=== PATIENT | female | born 1945 | race Caucasian/White ===

== ENCOUNTER 2019-10-04 21:56 | Observation (INO) | payer MEDICARE, OTHER, SELFPAY ==
[2019-10-04 23:02] VITALS: BMI 21.5
[2019-10-05 00:01] VITALS: PULSE 61; RESP 20; TEMP 36.3; O2SAT 98
--- NOTE | 2019-10-05 00:02 | USCV_ITS ---
Rakesh Hortensia Exam Date: 10/05/2019 07:07 Ordering Phys: Mikhail Soto MD Ag 74 Gender: F [place]am Location[place] [facility] [place]ologist: Mahi Eli e: Indication: TIA Risk Factors: Previous Vascular Surgery: Right Brachial BP: / Left Brachial BP: / Velocity (cm/s) Spectral Plaque Velocity (cm/s) Spectral Plaque Syst/Diast Broadening Syst/Diast Broadening 169.8 /19.60 Prox CCA 82.00 /16.40 0 108.5 /13.90 Mid CCA 95.90 /13.90 0 99.70 /18.90 Distal CCA 99.70 /24.00 64.30 /17.70 Prox ICA 112.9 /25.90 0 103.6 /26.70 Mid ICA 127.0 /28.40 0 0 88.50 /23.40 Distal ICA 120.3 /25.10 0 99.70 ECA 218.4 0 0.95 ICA/CCA 1.32 Antegrade Vertebral Antegrade 108.3/ 14.30 cm/s 69.50 / 10.00cm/s 0 Tri Subclavian Tri 131.2 113.6 0 0 FINDINGS Comparison 01/07/15 CONCLUSIONS Right ICA stenosis <50%. Moderate atheromatous plaque right carotid bulb/ICA. Left ICA stenosis 50-69% at the lower end of the range near 50%..Moderate atheromatous plaque left ca rotid bulb/ICA. Velocities decreased on the left compared to 2014 Normal antegrade Doppler flow noted in the right vertebral artery. Normal antegrade Doppler flow noted in the left vertebral artery. Alexx Monsivais MD (Electronically Signed) Final Date:05 October 2019 10:09 S
--- NOTE | 2019-10-05 02:32 | ECG_ITS ---
Measurements Intervals [place] Rate: 68 P: 71 ID: [id number] QRS: 70 QRSD: 93 T: 44 QT: 405 QTc: 434 SINUS RHYTHM Compared to ECG 11/12/2017 10:32:30 T-wave abnormality no longer present [email or web address]
[2019-10-05 02:58] VITALS: BP 133/60; RESP 18; TEMP 36.3
[2019-10-05 03:37] LABS: Troponin T (5th) Once 14 ng/mL (0-10)
[2019-10-05 08:00] VITALS: BP 150/74; PULSE 64; RESP 22; TEMP 36.9; O2SAT 93
[2019-10-05] MEDS: atorvastatin 40 mg Tablet 80 MG PO (08:17)
[2019-10-05] MEDS: clopidogrel 75 mg Tablet PO (08:18)
[2019-10-05] MEDS: gabapentin 300 mg Capsule PO (08:18)
[2019-10-05] MEDS: aspirin 81 mg EC Tablet PO (08:18)
[2019-10-05 10:11] LABS: Anion Gap 16.5 (5-19); Blood Urea Nitrogen 14 mg/dL (8-23); Calcium 10.3 mg/Dl (8.8-10.2); Carbon Dioxide 25 mmol/L (22-29); Chloride 102 mmol/L (98-107); Glucose 111 mg/dL (74-106); Potassium 4.5 mmol/L (3.5-5.1); Sodium 139 mmol/L (136-145)
[2019-10-05 11:42] VITALS: BP 173/65; PULSE 76; RESP 22; TEMP 36.8; O2SAT 97
--- NOTE | 2019-10-05 14:46 | P.DS_ITS ---
Discharge Providers Date of Admission: 10/04/19 21:56 Date of Discharge: 10/05/19 Attending Provider at Admission: Enma Soto MD Attending Provider at Discharge: Bari Nieves MD Primary Care Provider: Elian Tavera DO Diagnoses at Discharge Discharge Diagnosis (1) TIA (transient ischemic attack): Status: Acute Problem details: Symptoms are completely resolved Reason for Visit Reason for Visit: Reason For Visit: Tia Hospital Course Hospital Course: Hortensia is a 74-year-old white female who presents to the hospital with slurred speech, confusion. There was concern for TIA. By the time she arrived to the emergency department, symptoms had abated. CT head was negative. EKG demonstrated sinus rhythm. Work-up in the hospital demonstrated normal telemetry. Carotid duplex did not demonstrate surgical disease. Echocardiogram was not completed as she had recent previous work-up. On discharge she was afebrile, cardiovascular regular rate and rhythm, lungs clear. It was thought she could be discharged home on higher dose of statin, increased dose of aspirin. She will follow-up with neurology and her primary care provider. Physical Exam Narrative: EXAM NARRATIVE: General exam no apparent distress Cardiovascular regular rate and rhythm Lungs clear Abdomen is soft, positive bowel sounds Extremities no cyanosis clubbing or edema Neurologic: No focal deficits Discharge Data Data Completed and Pending: Completed Studies During Hospitalization Category Date Time Status CV carotid duplex BI* [id number] Routine Ultrasound 10/05/19 00:02 Completed Pending at discharge Category Date Time Status Urinalysis Routin e Lab 10/05/19 09:06 Ordered Labs from last 24 hours 10/05/19 10/05/19 10/04/19 09:45 02:42 20:30 WBC RBC Hgb Hct MCV MCH MCHC RDW Plt Count MPV Neut % (Auto) Lymph % (Auto) [place] % (Auto) Eos % (Auto) Baso % (Auto) Neut # (Auto) Lymph # (Auto) [place] # (Auto) Eos # (Auto) Baso # (Auto) Nucleated RBC % (a uto) Nucleated RBCs # PT INR Sodium 139 Potassium 4.5 Chloride 102 Carbon Dioxide 25 Anion Gap 16.5 BUN 14 Creatinine 0.9 Glucose 111 H Random Glucose Calcium 10.3 H Total Bilirubin AST ALT Alkaline Phosphata se Troponin T Gen 5 n g/L 14 H Troponin T Baselin e 18.17 H Total Protein Albumin Globulin 10/04/19 10/04/19 10/04/19 20:30 20:30 20:30 WBC 8.8 RBC 4.71 Hgb 14.1 Hct 42.7 MCV 90.7 MCH 29.9 MCHC 33.0 RDW 12.8 Plt Count 227 MPV 10.5 H Neut % (Auto) 76.5 Lymph % (Auto) 12.8 [place] % (Auto) 8.2 Eos % (Auto) 1.5 Baso % (Auto) 0.7 Neut # (Auto) 6.7 Lymph # (Auto) 1.1 [place] # (Auto) 0.7 Eos # (Auto) 0.1 Baso # (Auto) 0.1 Nucleated RBC % (a uto) 0 Nucleated RBCs # 0.0 PT 13.7 INR 1.02 Sodium 130 L Potassium 4.2 Chloride 93 L Carbon Dioxide 25 Anion Gap 16.2 BUN 17 Creatinine 1.1 H Glucose Random Glucose 129 H Calcium 10.4 H Total Bilirubin 0.6 AST 25 ALT 14 Alkaline Phosphata se 109 H Troponin T Gen 5 n g/L Troponin T Baselin e Total Protein 8.0 Albumin 5.0 Globulin 3.0 Vitals: Last Vital Signs Temp 98.2 F 10/05/19 11:42 Pulse 76 10/05/19 11:42 Resp 22 H 10/05/19 11:42 BP 173/65 10/05/19 11:42 Pulse Ox 97 10/05/19 11:42 Discharge Plan Discharge Patient Disposition: Home, Self-Care Condition: Stable Prescriptions: New atorvastatin 40 mg Tablet 80 mg PO DAILY Qty: 60 RF: 0 aspirin 162.5 mg capsule,extended release 24hr 162.5 mg PO DAILY Qty: 30 RF: 0 Continued amlodipine 2.5 mg Tablet 2.5 mg PO DAILY RF: 0 gabapentin 600 mg Tablet 600 mg PO QPM RF: 0 labetalol 200 mg Tablet 200 mg PO BID RF: 0 clopidogrel 75 mg Tablet 75 mg PO DAILY RF: 0 alprazolam 0.25 mg Tablet 0.25 mg PO QID PRN (Reason: Anxiety) RF: 0 gabapentin 300 mg Capsule 300 mg PO DAILY RF: 0 Discontinued atorvastatin 20 mg Tablet 20 mg PO QPM RF: 0 Aspir-81 81 mg Tablet,Delayed Release (Dr/Ec) 81 mg PO DAILY RF: 0 Discharge Orders: Discharge Order (Routine); Ordered 10/05/19 Ordered By: Bari Nieves Referrals: Tessie Guerrero MD [Physician] - 2 weeks Elian Tavera DO [Primary Care Provider] - 4-7 days Discharge Diet: Low Cholesterol Discharge Activity: Increase activity as tolerated Activity Restrictions/Additional Instructions: Take all medicine as prescribed. No anti-inflammatories. Discharge Attestations Time Spent in Discharge Care*: greater than 30 min Quality Metrics Clinical Quality Measures During this hospital stay, did patient experience: Stroke Contraindication to Antithrombotic: Antithrombotic prescribed Contraindication to Anticoagulation: Overlap treatment not indicated Contraindication to Statin: Statin prescribed Coding Level of Care Code Acute Rf Engineer for g Fwd Diagnoses TIA (transient ischemic attack) G45.9
[2019-10-05 15:20] VITALS: BP 150/74; PULSE 64; RESP 22; TEMP 36.8; O2SAT 97
== END 2019-10-05 15:34 | disposition home or self-care (01) ==
PROVIDERS: Admitting Provider Internal Medicine; Emergency Provider Emergency Medicine; Family Provider Internal Medicine; PCP Internal Medicine; Visit Provider Internal Medicine
DX: G45.9 Transient cerebral ischemic attack, unspecified (principal); R29.700 NIHSS score 0; I73.9 Peripheral vascular disease, unspecified; Z86.73 Personal history of transient ischemic attack (TIA), and cerebral infarction without residual deficits; Z79.02 Long term (current) use of antithrombotics/antiplatelets; Z87.891 Personal history of nicotine dependence; I10 Essential (primary) hypertension; G47.30 Sleep apnea, unspecified
CPT/HCPCS: 36415; 36416; 70450; 71045; 80048; 80053; 84484; 85025; 85610; 93005; 99285; G0378

== ENCOUNTER → 2019-10-25 12:28 | Outpatient (BNVA) | payer MEDICARE, OTHER, SELFPAY | PROVIDERS: Family Provider Internal Medicine; PCP Internal Medicine; Referring Provider Internal Medicine; Visit Provider Specialist | DX: I99.8 Other disorder of circulatory system (principal); Z87.891 Personal history of nicotine dependence; Z86.73 Personal history of transient ischemic attack (TIA), and cerebral infarction without residual deficits | CPT/HCPCS: 99204; 99214 ==

== ENCOUNTER 2019-11-03 08:23 | Outpatient (CLI) | payer MEDICARE, OTHER, SELFPAY ==
--- NOTE | 2019-11-03 08:45 | MR_ITS ---
WS: [id number] MRI HEAD WITHOUT CONTRAST TECHNIQUE: Sagittal T1, T2 axial, T2 axial FLAIR, axial and coronal T1 images, axial susceptibility w eighted imaging, axial diffusion weighted images, and coronal T2 images were obtained. CLINICAL INFORMATION: Stroke COMPARISON: CT October 04, 2019 FINDINGS: No evidence of restricted diffusion to suggest acute ischemia. Ventricular system and basal cisterns are patent. Moderate small vessel changes with moderate parenchymal volume loss. Chronic lacunar infa rct right thalamus. Normal posterior fossa. Normal vascular flow voids at the skull base. No extra-ax ial fluid collections. Mild mucosal thickening in the paranasal sinuses. Mastoid air cells demonstrat e mild mucosal thickening right greater than left. Incidental partially empty sella. No hemosiderin on the susceptibly weighted images. Normal optic chiasm and pituitary infundibulum. Mi ld symmetric atrophy involving the temporal lobes and hippocampal formations. MR/MR head wo con* [id number] IMPRESSION: 1. No evidence of restricted diffusion to suggest acute ischemia. 2. Moderate small vessel changes with moderate parenchymal volume loss. 3. Chronic lacunar infarct right thalamus. 4. No hemosiderin on susceptibly weighted images. 5. Mild symmetric atrophy involving the temporal lobes and hippocampal formati ons. 6. Mild mucosal thickening in the paranasal sinuses and right mastoid air cell s.
--- NOTE | 2019-11-03 09:30 | MR_ITS ---
WS: [id number] MRA HEAD TECHNIQUE: Axial 3-D TOF images obtained with axial images and axial, sagittal, and coronal 2-D refor matted images. CLINICAL INFORMATION: Stroke COMPARISON: None. FINDINGS: Dominant distal right vertebral artery. Hypoplastic distal left vertebral artery. Basilar artery is p atent. 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 Both ICAs are patent at the skull base. Normal vascularity to the [place] and MCA territories bilaterally . No evidence of high-grade proximal stenosis or aneurysm. MR/MR angio head wo con [id number] IMPRESSION: 1. No evidence of high-grade proximal stenosis or aneurysm. 2. Dominant distal right vertebral artery. Hypoplastic distal left vertebral a rtery. 3. 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
== END 2019-11-03 08:24 | disposition home or self-care (01) ==
LOC: RADSHAW 08:23
PROVIDERS: Family Provider Internal Medicine; PCP Internal Medicine; Visit Provider Specialist
DX: I63.81 Other cerebral infarction due to occlusion or stenosis of small artery (principal)
CPT/HCPCS: 70544; 70551

== ENCOUNTER 2019-12-04 14:58 | Observation (INO) | payer MEDICARE, OTHER, SELFPAY ==
[2019-12-04] VITALS (16 sets, daily range): BP systolic 110–162; BP diastolic 48–86; PULSE 49–68; RESP 14–23; O2SAT 93–99; BMI 19.9
--- NOTE | 2019-12-04 15:00 | PC.NURSE ---
PHYSICAL ASSESSMENT Chief Complaint: Altered mental status. History: Per . states ? My is having a stroke, she is sweating, is confused, and can?t lift her arms. ? Last known normal: 1230, Found with deficits: 13:30 GENERAL / NEURO / PSYCH: Alert. Oriented X 4. BORIS COMA SCORE: 15- eyes open spontaneously (4); best verbal response- oriented x 4 (5); best motor response- obeys commands (6). HEENT: No facial asymmetry noted. Mucous membranes are pink. RESPIRATORY Chest nontender. Breath sounds within normal limits. CVS: Capillary refill less than 2 seconds. Pulses within normal limits. GI / : Abdomen soft and nontender and normal bowel sounds. NIHSS: Zero SKIN: Skin intact. Skin is warm and dry. Normal skin turgor. Symptoms resolved following pre-hospital treatment ( hypoglycemia ) PROGRESS NOTE Stroke alert called by EMS. Patient directly to CT on arrival.
--- NOTE | 2019-12-04 15:00 | ED_ITS ---
Entered by Kayleen Aranda, acting as scribe for Janine Dailey MD, [facility] HPI - Neuro Symptoms/Deficit General: Chief Complaint: Neuro Symptoms/Deficit Stated Complaint: stroke alert Time Seen by Provider: 12/04/19 14:58 Source: patient, family, EMS and RN notes reviewed Mode of arrival: EMS Limitations: no limitations History of Present Illness: HPI Narrative: 74 yo female presents to ED with complaints of bilateral arm twitching and bilateral arm drift. The patient's last known normal was at 1330 today and spouse reports the patient was back to her normal at 1455. The patient had been napping and she had the symptoms when she woke. She is now able to give date and her name, has no drift, no added draw to her mouth (at 1512). When EMS arrived, the patient's blood sugar was 38 and she was diaphoretic; her blood sugar was 129 after 250 ml D10 administered by EMS. Onset (ago): hour(s) (1.5 (1330)) Time: 13:30 Last Observed Normal: 13:30 Timing confirmed by: family member Location: left arm (twitching, reported drifting), right arm (twitching, reported drifting) and altered (reported unable to give name) History of same: Yes (similar) Severity: moderate Quality: weak and improving Relieving factors: none Exacerbating factors: none Context: sudden onset On Anticoagulants: Yes Associated symptoms: Reports chest pain, diaphoresis and weakness; Deny headache(s), nausea or vomiting Treatments Prior to Arrival: other (D10) Review of Systems General: Reports: 10 or more systems reviewed and unremarkable except in HPI and below Const: Reports: diaphoresis Eyes: Denies: change in vision or blurry vision ENMT: Denies: throat pain, enlarged tonsils, painful swallowing, hoarseness, mouth pain or swelling of lips/tongue Card: Reports: chest pain; Denies: palpitations, irregular heart rhythm, edema or swelling of feet/ankles Resp: Denies: shortness of breath, productive cough or non-productive cough GI: Denies: abdominal pain, nausea or vomiting : Denies: flank pain, difficulty urinating, painful urination, urinary frequency, urinary urgency or urinary hesitancy Musc: Denies: neck pain, back pain or extremity swelling Skin/Breast: Denies: rash, itching or redness Neuro: Denies: headache, numbness in extremities or weakness in extremities Endo: Denies: excessive urination, excessive thirst or tired all the time PFSH ED PFSH: Medical History (Updated 12/05/19 @ 00:03 by Janine Dailey MD, [facility]) Anxiety CAD (coronary artery disease) Cardiac arrest Celiac axis syndrome Chronic pancreatitis CVA (cerebral vascular accident) GI bleed Hiatal hernia History of blood transfusion History of vaginal delivery Hypertension Hyponatremia Mesenteric artery stenosis Mesenteric ischemia Migraine Peripheral vascular disease Pneumonia Postmenopausal Single kidney Sleep apnea TIA (transient ischemic attack) Symptoms are completely resolved TIA (transient ischemic attack) Upper GI bleed Surgical History (Updated 12/04/19 @ 23:48 by Enma Soto MD) H/O aorto-femoral bypass H/O left nephrectomy History of tubal ligation Social History Smoking and tobacco status: former smoker Quit status (tobacco): has quit using tobacco Alcohol intake: current Alcohol intake frequency: 0-2 Drinks per Day Alcohol type: beer NIH stroke score NIHSS: Level Of Consciousness - 1a: 0 Level Of Consciousness Questions - 1b: Both Correct Level Of Consciousness Commands - 1c: Both Correct Best Gaze - 2: Normal Visual Davidson - 3: No Visual Loss Facial Palsy - 4: Normal Motor Arm Right - 5: No Drift Motor Arm Left - 5: No Drift Motor Leg Right - 6: No Drift Motor Leg Left - 6: No Drift Limb Ataxia - 7: Absent Sensory - 8: Mild To Moderate Loss Best Language - 9: No Aphasia Dysarthia - 10: Mild/Moderate Dysarthia Extinction And Inattention - 11: 0 Score: Total Score: 2 Physical Exam Const: COMMON NORMALS: no apparent distress, average body habitus, oriented x3, no limitations, healthy appearing, alert and well nourished HENMT: COMMON NORMALS: normocephalic and head/scalp atraumatic; oral mucous membranes not moist HEAD & SCALP: normocephalic and atraumatic Eye: COMMON NORMALS: PERRL, EOMs intact bilaterally, conjunctivae normal and no scleral icterus CONJUNCTIVA: Yes conjunctivae normal PUPIL: Yes PERRL Neck/C-Spine: COMMON NORMALS: full ROM, supple, no meningeal signs, no JVD and no carotid bruits Chest: COMMONS NORMALS: inspection of chest normal and palpation of chest normal Resp: COMMON NORMALS: normal respiratory effort, no retractions, no use of accessory muscles, clear to auscultation bilaterally and percussion normal AUSCULTATION: clear to auscultation bilaterally PERCUSSION: percussion normal Cardio: COMMON NORMALS: no JVD, regular rate, regular rhythm, S1 normal heart sound, S2 normal heart sound, no gallops, no clicks, no murmurs, no rub and peripheral pulses 2+ throughout RATE: regular rate RHYTHM: regular rhythm HEART SOUNDS: S1 normal and S2 normal PERIPHERAL PULSES: pulses 2+ throughout GI: COMMON NORMALS: normal to inspection, nondistended, normoactive bowel sounds, soft to palpation, non-tender, no hepatosplenomegaly, no masses and no bruits PALPATION: Yes soft and Yes no hepatosplenomegaly : COMMON NORMALS: Yes no CVA tenderness BLADDER/KIDNEY EXAM: Yes no CVA tenderness Back/Pelvis: COMMON NORMALS: no CVA tenderness Extremity: COMMON NORMALS: normal to inspection, full ROM, normal capillary refill, no calf tenderness and no pedal edema Neuro: COMMON NORMALS: oriented x3 SENSORIUM/ORIENTATION: Yes alert MENINGEAL SIGNS: Yes no meningeal signs Skin: COMMON NORMALS: no rashes or lesions noted, no wounds, skin turgor normal, no jaundice, no petechiae and no mottling GENERAL SKIN EXAM: no rashes or lesions noted and turgor normal Course Consultations: Consultation #1: Dr. Soto, hospitalist. He would like for her to obtain an MRCP to rule out choledocholithiasis before admit. Vital Signs: Vital signs: Vital Signs Pulse Rate 68 12/04/19 23:19 Respiratory Rate 16 12/04/19 23:19 Blood Pressure 150/62 12/04/19 23:42 Pulse Oximetry 98 12/04/19 23:42 MDM - Neuro Symptoms/Deficit MDM Narrative: Medical decision making narrative: Patient who presented to the ED with concerns of a CVA. She was however severely hypoglycemic. No history of DM. She however is a poor eater and her last meal was lunch yesterday and or she had a salad. She does not eat any animal protein, no soda, no juices. Also drinks his water. NIH score was 2. She had diarrheal illness earlier today also. CT scan of abdomen showed possible choledocholithiasis on MRCP was ordered which was negative. She is therefore admitted to the hospitalist service for further evaluation and management. Medical Records: Attestation: I reviewed the patient's medical records. Lab Data: Attestation: I reviewed the patient's lab results. Labs: Lab Results 12/04/19 12/04/19 12/04/19 Range/Units 15:05 15:05 15:05 WBC 9.0 (4.0-10.0) 10^3/ uL RBC 4.06 L (4.1-5.3) 10^6/u L Hgb 12.1 (11.5-15.3) g/dL Hct 36.3 L (37.0-47.0) % MCV 89.4 (81-99) fL MCH 29.8 (28.0-34.0) pg MCHC 33.3 (30.0-36.0) g/dL RDW 12.5 (12.1-15.1) % Plt Count 217 (130-400) 10^3/c mm MPV 12.3 H (7.4-10.4) fL Neut % (Auto) 64.7 % Lymph % (Auto) 19.5 % Kings % (Auto) 13.7 % Eos % (Auto) 1.2 % Baso % (Auto) 0.6 % Neut # (Auto) 5.8 (1.8-7.7) 10^3/u L Lymph # (Auto) 1.8 (0.8-4.8) 10^3/u L Kings # (Auto) 1.2 H (0.2-0.9) 10^3/u L Eos # (Auto) 0.1 (0.0-0.8) 10^3/u L Baso # (Auto) 0.1 (0.0-0.1) 10^3/u L Nucleated RBC % (a uto) 0 % Nucleated RBCs # 0.0 /100WBC PT 13.70 H (10.5-13.3) SECO NDS INR 1.02 (0.8-1.2) APTT 29.4 (23.9-36.7) SECO NDS Sodium 130 L (136-145) mmol/L Potassium 3.6 (3.5-5.1) mmol/L Chloride 96 L (98-107) mmol/L Carbon Dioxide 25 (22-29) mmol/L Anion Gap 12.6 (5-19) BUN 17 (8-23) mg/dL Creatinine 1.0 H (0.5-0.9) mg/dL Glucose 36 L* (65-115) mg/dL POC Glucose (70-110) mg/dL Calcium 9.6 (8.5-10.5) mg/dL Total Bilirubin 0.7 (0.15-1.2) mg/dL AST 22 (0-32) U/L ALT 12 (0-33) U/L Alkaline Phosphata se 95 (35-105) IU/L Total Protein 6.7 (6.6-8.7) g/dL Albumin 4.1 (3.5-5.2) g/dL Globulin 2.6 (1.3-4.6) g/dL Lipase (13-60) U/L Urine Color (Yellow) Urine Appearance (CLEAR) Urine pH (5-7) Ur Specific Gravit y (1.005-1.030) Urine Protein (Negative) Urine Glucose (UA) (Normal) Urine Ketones (Negative) Urine Blood (Negative) Urine Nitrate (Negative) Urine Bilirubin (NEGATIVE) Urine Urobilinogen (Negative) mg/dL Ur Leukocyte Veronica ase (Negative) Urine Opiates Scre en (Negative) ng/mL Ur Barbiturates Sc reen (Negative) ng/mL Ur Phencyclidine S crn (Negative) ng/mL Ur Amphetamines Sc reen (Negative) ng/mL U Benzodiazepines Scrn (Negative) ng/mL Urine Cocaine Scre en (Negative) ng/mL U Marijuana (THC) Screen (Negative) ng/mL 12/04/19 12/04/19 12/04/19 Range/Units 15:05 16:11 17:10 WBC (4.0-10.0) 10^3/ uL RBC (4.1-5.3) 10^6/u L Hgb (11.5-15.3) g/dL Hct (37.0-47.0) % MCV (81-99) fL MCH (28.0-34.0) pg MCHC (30.0-36.0) g/dL RDW (12.1-15.1) % Plt Count (130-400) 10^3/c mm MPV (7.4-10.4) fL Neut % (Auto) % Lymph % (Auto) % Kings % (Auto) % Eos % (Auto) % Baso % (Auto) % Neut # (Auto) (1.8-7.7) 10^3/u L Lymph # (Auto) (0.8-4.8) 10^3/u L Kings # (Auto) (0.2-0.9) 10^3/u L Eos # (Auto) (0.0-0.8) 10^3/u L Baso # (Auto) (0.0-0.1) 10^3/u L Nucleated RBC % (a uto) % Nucleated RBCs # /100WBC PT (10.5-13.3) SECO NDS INR (0.8-1.2) APTT (23.9-36.7) SECO NDS Sodium (136-145) mmol/L Potassium (3.5-5.1) mmol/L Chloride (98-107) mmol/L Carbon Dioxide (22-29) mmol/L Anion Gap (5-19) BUN (8-23) mg/dL Creatinine (0.5-0.9) mg/dL Glucose (65-115) mg/dL POC Glucose 170 (70-110) mg/dL Calcium (8.5-10.5) mg/dL Total Bilirubin (0.15-1.2) mg/dL AST (0-32) U/L ALT (0-33) U/L Alkaline Phosphata se (35-105) IU/L Total Protein (6.6-8.7) g/dL Albumin (3.5-5.2) g/dL Globulin (1.3-4.6) g/dL Lipase 132 H (13-60) U/L Urine Color Yellow (Yellow) Urine Appearance Clear (CLEAR) Urine pH 5 (5-7) Ur Specific Gravit y 1.005 (1.005-1.030) Urine Protein Neg (Negative) Urine Glucose (UA) Trace H (Normal) Urine Ketones Negative (Negative) Urine Blood Neg (Negative) Urine Nitrate Negative (Negative) Urine Bilirubin Neg (NEGATIVE) Urine Urobilinogen Norm (Negative) mg/dL Ur Leukocyte Veronica ase Negative (Negative) Urine Opiates Scre en (Negative) ng/mL Ur Barbiturates Sc reen (Negative) ng/mL Ur Phencyclidine S crn (Negative) ng/mL Ur Amphetamines Sc reen (Negative) ng/mL U Benzodiazepines Scrn (Negative) ng/mL Urine Cocaine Scre en (Negative) ng/mL U Marijuana (THC) Screen (Negative) ng/mL 12/04/19 12/04/19 12/04/19 Range/Units 17:10 18:48 20:27 WBC (4.0-10.0) 10^3/ uL RBC (4.1-5.3) 10^6/u L Hgb (11.5-15.3) g/dL Hct (37.0-47.0) % MCV (81-99) fL MCH (28.0-34.0) pg MCHC (30.0-36.0) g/dL RDW (12.1-15.1) % Plt Count (130-400) 10^3/c mm MPV (7.4-10.4) fL Neut % (Auto) % Lymph % (Auto) % Kings % (Auto) % Eos % (Auto) % Baso % (Auto) % Neut # (Auto) (1.8-7.7) 10^3/u L Lymph # (Auto) (0.8-4.8) 10^3/u L Kings # (Auto) (0.2-0.9) 10^3/u L Eos # (Auto) (0.0-0.8) 10^3/u L Baso # (Auto) (0.0-0.1) 10^3/u L Nucleated RBC % (a uto) % Nucleated RBCs # /100WBC PT (10.5-13.3) SECO NDS INR (0.8-1.2) APTT (23.9-36.7) SECO NDS Sodium (136-145) mmol/L Potassium (3.5-5.1) mmol/L Chloride (98-107) mmol/L Carbon Dioxide (22-29) mmol/L Anion Gap (5-19) BUN (8-23) mg/dL Creatinine (0.5-0.9) mg/dL Glucose (65-115) mg/dL POC Glucose 140 115 (70-110) mg/dL Calcium (8.5-10.5) mg/dL Total Bilirubin (0.15-1.2) mg/dL AST (0-32) U/L ALT (0-33) U/L Alkaline Phosphata se (35-105) IU/L Total Protein (6.6-8.7) g/dL Albumin (3.5-5.2) g/dL Globulin (1.3-4.6) g/dL Lipase (13-60) U/L Urine Color (Yellow) Urine Appearance (CLEAR) Urine pH (5-7) Ur Specific Gravit y (1.005-1.030) Urine Protein (Negative) Urine Glucose (UA) (Normal) Urine Ketones (Negative) Urine Blood (Negative) Urine Nitrate (Negative) Urine Bilirubin (NEGATIVE) Urine Urobilinogen (Negative) mg/dL Ur Leukocyte Veronica ase (Negative) Urine Opiates Scre en Negative (Negative) ng/mL Ur Barbiturates Sc reen Negative (Negative) ng/mL Ur Phencyclidine S crn Negative (Negative) ng/mL Ur Amphetamines Sc reen Negative (Negative) ng/mL U Benzodiazepines Scrn Negative (Negative) ng/mL Urine Cocaine Scre en Negative (Negative) ng/mL U Marijuana (THC) Screen Negative (Negative) ng/mL Imaging Data^: CT Head: Radiologist's impression: [place] [address] CT Scan Report Signed Patient: Hortensia Cameron #: [id number] : 6Acct#:[id number] Age/Sex: 74 / FADM Date: 12/04/19 Loc: ERRoom/Bed: Attending Dr: Ordering Provider/Ordering MD: Janine Dailey MD, [facility] Date of Service: 12/04/19 Procedure(s): CT head wo con* [id number] Accession Number(s): [id number] Report Number: [id number] PROCEDURE INFORMATION: Exam: CT Head Without Contrast Exam date and time: 12/04/2019 3:02 PM Age: 74 years old Clinical indication: Patient HX: Unresponsive - resolved; Additional info: Stroke ; ameya symptoms TECHNIQUE: Imaging protocol: Computed tomography of the head without contrast. Total DLP: 896 mGy-cm Radiation optimization: All CT scans at this facility use at least one of these dose optimization techniques: automated exposure control; mA and/or kV adjustment per patient size (includes targeted exams where dose is matched to clinical indication); or iterative reconstruction. Other technique: STROKE PROTOCOL was implemented. COMPARISON: CT head wo con* [id number] 10/04/2019 8:32 PM FINDINGS: Brain: There is no evidence of acute intracranial hemorrhage, midline shift or mass effect. Unchanged remote right thalamic lacunar infarct. There are stable scattered hypoattenuating regions within the subcortical and periventricular white matter, which are non specific and are most commonly associated with chronic microvascular ischemic change. There is no CT evidence of an acute transcortical infaction. Ventricles: There is mild parenchymal volume loss with compensatory prominence of the ventricles and CSF containing spaces. Bones/joints: No acute fracture. Sinuses: Visualized sinuses are unremarkable. No fluid levels. Mastoid air cells: Visualized mastoid air cells are well aerated. Soft tissues: Unremarkable. Vasculature: Atherosclerotic calcifications are noted. CT/CT head wo con* [id number] IMPRESSION: 1. Stable examination without CT evidence of an acute intracranial process. ASSESSMENT: ASPECTS ([place] Stroke Program Early CT Score) is 10. Radiation Dose CTDIVOL = (mGy): DLP = 896 (mGy-cm) Dictated By:Darryl Roland MD Signed By:Darryl Roland MDSigned Date/Time:12/04/19 1514 DD/ CXR: Radiologist's impression: [address] [address] XRay Report Signed Patient: Hortensia Cameron #: [id number] : 6Acct#:[id number] Age/Sex: 74 / FADM Date: 12/04/19 Loc: ERRoom/Bed: Attending Dr: Ordering Provider/Ordering MD: Janine Dailey MD, [facility] Date of Service: 12/04/19 Procedure(s): XR chest 1V portable [id number] Accession Number(s): [id number] Report Number: [id number] PROCEDURE INFORMATION: Exam: XR Chest, 1 View Exam date and time: 12/04/2019 4:23 PM Age: 74 years old Clinical indication: Shortness of breath; Additional info: Hypoglycemia TECHNIQUE: Imaging protocol: XR of the chest Views: 1 view. COMPARISON: CR Chest 1 [place] [id number] 10/04/2019 8:32 PM FINDINGS: Lungs: There is a streaky opacity along the medial left lung base. Pleural space: No significant pleural effusion. No discernible pneumothorax. Heart/Mediastinum: Atherosclerotic calcifications are present within the aortic arch. No cardiomegaly. Bones/joints: Unremarkable for technique. XR/XR chest 1V portable [id number] IMPRESSION: 1. Streaky left basilar opacity, which may reflect atelectasis versus early consolidation. Dictated By:Darryl Roland MD Signed By:Darryl Roland MDSigned Date/Time:12/04/19 170 DD/ CT Abd/Pel: Radiologist's impression: [place] [address] CT Scan Report Signed Patient: Hortensia Cameron #: [id number] : 6Acct#:[id number] Age/Sex: 74 / FADM Date: 12/04/19 Loc: ERRoom/Bed: Attending Dr: Ordering Provider/Ordering MD: Janine Dailey MD, [facility] Date of Service: 12/04/19 Procedure(s): CT abdomen pelvis w con* [id number] Accession Number(s): [id number] Report Number: [id number] PROCEDURE INFORMATION: Exam: CT Abdomen And Pelvis With Contrast Exam date and time: 12/04/2019 4:23 PM Age: 74 years old Clinical indication: Prior surgery; Surgery date: 6+ months; Surgery type: L nephrectomy and mesenteric artery surgery; Patient HX: Hypoglycemia and diarrhea TECHNIQUE: Imaging protocol: Computed tomography of the abdomen and pelvis with intravenous contrast. Total DLP: 474.45 mGy-cm Radiation optimization: All CT scans at this facility use at least one of these dose optimization techniques: automated exposure control; mA and/or kV adjustment per patient size (includes targeted exams where dose is matched to clinical indication); or iterative reconstruction. Contrast material: VISI 320; Contrast volume: 75 ml; Contrast route: 20G; COMPARISON: CT abdomen pelvis w con* [id number] 11/11/2017 6:21 PM FINDINGS: Lungs: There is mild lower lobe subsegmental atelectasis left slightly greater than right. The visualized lung bases are otherwise grossly clear. Scattered emphysematous change is noted. Liver: No mass. Gallbladder and bile ducts: Multiple coarse calcifications are noted within the gallbladder. The common bile duct measures up to 8 mm. A small amount of pericholecystic fluid is questioned. Pancreas: Scattered pancreatic calcifications are again noted suggestive of chronic pancreatitis. Spleen: No splenomegaly. Adrenals: Although better delineated on today's examination, there is an unchanged ovoid 1.2 cm nodule within the left adrenal gland, which is of intermediate density. Given the greater than 1 year stability, no follow-up is necessary. 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 There is mild right-sided hydronephrosis and proximal hydroureter. No renal or ureteral calcifications are identified. Stomach and bowel: There are a few nondilated loops of small bowel with mild wall thickening. There is no evidence of bowel obstruction. Appendix: No evidence of appendicitis. Intraperitoneal space: No free air. No significant fluid collection. Vasculature: Aortoiliac and branch vessel atherosclerotic calcifications are noted. Aortic bilateral common femoral bypass graft is again noted. 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 Lymph nodes: No enlarged lymph nodes. Bladder: Mild bladder wall thickening is likely secondary to decompression. Reproductive: Unremarkable as visualized. Bones/joints: There are multilevel degenerative changes of the spine with unchanged wedge compression deformities involving the T11 and L2 vertebral bodies. There are no acute osseous findings. Soft tissues: Metallic clip is noted within the left hemipelvis. CT/CT abdomen pelvis w con* [id number] IMPRESSION: 1. Few nondilated loops of small bowel with mild wall thickening, which can be seen with nonspecific enteritis. There is no evidence of bowel obstruction. 2. Cholelithiasis with the common bile duct measuring up to 8 mm and questionable pericholecystic fluid. If right upper quadrant symptoms are present, findings can be associated with acute cholecystitis. Correlate with dedicated ultrasound as warranted. 3. Mild right-sided hydronephrosis and proximal hydroureter. No renal or ureteral calcifications are identified. 4. Mild bladder wall thickening is likely secondary to underdistention. Correlate to exclude cystitis. 5. Additional nonacute findings as detailed above. Radiation Dose CTDIVOL = (mGy): DLP = 474.45 (mGy-cm) Dictated By:Darryl Roland MD Signed By:Darryl Roland MDSigned Date/Time:12/04/191821 DD/ EKG Data^: EKG 1: Attestation: I personally reviewed and interpreted this EKG as follows: EKG interpretation date: 12/04/19 EKG interpretation time: 15:29 Prior EKG tracings: not available for review Interpretation: Sinus bradycardia. Heart rate [address] changes. Normal axis. Discharge Plan Discharge Patient Disposition: Placed in Observation Clinical Impression: Hypoglycemia Condition: Stable Referrals: Elian Tavera DO [Primary Care Provider] - Coding Level of Care Code ED Bias Machine Operator Helper for Chg Fwd Exam Comprehensive The documentation recorded by the Manoj cook Valerie R, accurately reflects the service I personally performed and the decisions made by Asim simpson Adegoke I, MD, [facility] Dec 04, 2019 14:58
--- NOTE | 2019-12-04 15:03 | ECG_ITS ---
Measurements Intervals [place] Rate: 56 P: 43 CO: 195 QRS: 67 QRSD: 94 T: 40 QT: 456 QTc: 443 SINUS BRADYCARDIA Compared to ECG 10/05/2019 04:28:09 Sinus rhythm no longer present Electronically Signed On 12-04-2019 20:01:28 REGISTERED NURSE FETAL by Hector Landry M.D. [email or web address]
[2019-12-04 15:20] LABS: Basophils # 0.1 10^3/uL (0.0-0.1); Basophils % 0.6 %; Eosinophils # 0.1 10^3/uL (0.0-0.8); Eosinophils % 1.2 %; Hematocrit 36.3 % (37.0-47.0); Hemoglobin 12.1 g/dL (11.5-15.3); Lymphocytes # 1.8 10^3/uL (0.8-4.8); Lymphocytes % 19.5 %; Mean Corpuscular HGB Conc 33.3 g/dL (30.0-36.0); Mean Corpuscular Hemoglobin 29.8 pg (28.0-34.0); Mean Corpuscular Volume 89.4 fL (81-99); Mean Platelet Volume 12.3 fL (7.4-10.4); Monocytes # 1.2 10^3/uL (0.2-0.9); Monocytes % 13.7 %; Neutrophils # 5.8 10^3/uL (1.8-7.7); Neutrophils % 64.7 %; Nucleated Red Blood Cells % 0 %; Platelet Count 217 10^3/cmm (130-400); Red Blood Count 4.06 10^6/uL (4.1-5.3); Red Cell Distribution Width 12.5 % (12.1-15.1)
[2019-12-04 15:29] LABS: INR 1.02 (0.8-1.2); Partial Thromboplastin Time 29.4 SECONDS (23.9-36.7)
[2019-12-04 15:33] LABS: Alanine Aminotransferase 12 U/L (0-33); Albumin Level 4.1 g/dL (3.5-5.2); Alkaline Phosphatase 95 IU/L (35-105); Anion Gap 12.6 (5-19); Aspartate Amino Transferase 22 U/L (0-32); Blood Urea Nitrogen 17 mg/dL (8-23); Calcium 9.6 mg/dL (8.5-10.5); Carbon Dioxide 25 mmol/L (22-29); Chloride 96 mmol/L (98-107); Globulin 2.6 g/dL (1.3-4.6); Potassium 3.6 mmol/L (3.5-5.1); Sodium 130 mmol/L (136-145); Total Bilirubin 0.7 mg/dL (0.15-1.2); Total Protein 6.7 g/dL (6.6-8.7)
[2019-12-04 15:43] LABS: Glucose 36 mg/dL (65-115)
--- NOTE | 2019-12-04 16:22 | XRR_ITS ---
PROCEDURE INFORMATION: Exam: XR Chest, 1 View Exam date and time: 12/04/2019 4:23 PM Age: 74 years old Clinical indication: Shortness of breath; Additional info: Hypoglycemia TECHNIQUE: Imaging protocol: XR of the chest Views: 1 view. COMPARISON: CR Chest 1 [place] [id number] 10/04/2019 8:32 PM FINDINGS: Lungs: There is a streaky opacity along the medial left lung base. Pleural space: No significant pleural effusion. No discernible pneumothorax. Heart/Mediastinum: Atherosclerotic calcifications are present within the aortic arch. No cardiomegaly. Bones/joints: Unremarkable for technique. XR/XR chest 1V portable [id number] IMPRESSION: 1. Streaky left basilar opacity, which may reflect atelectasis versus early consolidation.
--- NOTE | 2019-12-04 16:23 | CTR_ITS ---
PROCEDURE INFORMATION: Exam: CT Abdomen And Pelvis With Contrast Exam date and time: 12/04/2019 4:23 PM Age: 74 years old Clinical indication: Prior surgery; Surgery date: 6+ months; Surgery type: L nephrectomy and mesenteric artery surgery; Patient HX: Hypoglycemia and diarrhea TECHNIQUE: Imaging protocol: Computed tomography of the abdomen and pelvis with intravenous contrast. Total DLP: 474.45 mGy-cm Radiation optimization: All CT scans at this facility use at least one of these dose optimization techniques: automated exposure control; mA and/or kV adjustment per patient size (includes targeted exams where dose is matched to clinical indication); or iterative reconstruction. Contrast material: VISI 320; Contrast volume: 75 ml; Contrast route: 20G; COMPARISON: CT abdomen pelvis w con* [id number] 11/11/2017 6:21 PM FINDINGS: Lungs: There is mild lower lobe subsegmental atelectasis left slightly greater than right. The visualized lung bases are otherwise grossly clear. Scattered emphysematous change is noted. Liver: No mass. Gallbladder and bile ducts: Multiple coarse calcifications are noted within the gallbladder. The common bile duct measures up to 8 mm. A small amount of pericholecystic fluid is questioned. Pancreas: Scattered pancreatic calcifications are again noted suggestive of chronic pancreatitis. Spleen: No splenomegaly. Adrenals: Although better delineated on today's examination, there is an unchanged ovoid 1.2 cm nodule within the left adrenal gland, which is of intermediate density. Given the greater than 1 year stability, no follow-up is necessary. 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 There is mild right-sided hydronephrosis and proximal hydroureter. No renal or ureteral calcifications are identified. Stomach and bowel: There are a few nondilated loops of small bowel with mild wall thickening. There is no evidence of bowel obstruction. Appendix: No evidence of appendicitis. Intraperitoneal space: No free air. No significant fluid collection. Vasculature: Aortoiliac and branch vessel atherosclerotic calcifications are noted. Aortic bilateral common femoral bypass graft is again noted. 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 Lymph nodes: No enlarged lymph nodes. Bladder: Mild bladder wall thickening is likely secondary to decompression. Reproductive: Unremarkable as visualized. Bones/joints: There are multilevel degenerative changes of the spine with unchanged wedge compression deformities involving the T11 and L2 vertebral bodies. There are no acute osseous findings. Soft tissues: Metallic clip is noted within the left hemipelvis. CT/CT abdomen pelvis w con* [id number] IMPRESSION: 1. Few nondilated loops of small bowel with mild wall thickening, which can be seen with nonspecific enteritis. There is no evidence of bowel obstruction. 2. Cholelithiasis with the common bile duct measuring up to 8 mm and questionable pericholecystic fluid. If right upper quadrant symptoms are present, findings can be associated with acute cholecystitis. Correlate with dedicated ultrasound as warranted. 3. Mild right-sided hydronephrosis and proximal hydroureter. No renal or ureteral calcifications are identified. 4. Mild bladder wall thickening is likely secondary to underdistention. Correlate to exclude cystitis. 5. Additional nonacute findings as detailed above. Radiation Dose CTDIVOL = (mGy): DLP = 474.45 (mGy-cm)
[2019-12-04 17:02] LABS: Lipase 132 U/L (13-60)
[2019-12-04 17:36] LABS: Add Urine Microscopic? NO
[2019-12-04 17:43] LABS: Bilirubin Urine Neg (NEGATIVE); Blood Urine Neg (Negative); Glucose Urine UA Trace (Normal); Ketones Urine Negative (Negative); Leukocyte Esterase Urine Negative (Negative); Nitrate Urine Negative (Negative); Protein Urine Neg (Negative); Specific Gravity, Urine 1.005 (1.005-1.030); Urine Appearance Clear (CLEAR); Urine Color Yellow (Yellow); Urobilinogen Urine Norm (Negative); pH Urine 5 (5-7)
[2019-12-04] MEDS: iodixanol 320 mg/mL 100mL Btl IV (17:45)
[2019-12-04 17:58] LABS: Amphetamines Screen Urine Negative (Negative); Barbiturates Screen Urine Negative (Negative); Benzodiazepines Screen Urine Negative (Negative); Cocaine Screen Urine Negative (Negative); Opiate Screen Urine Negative (Negative); PCP Screen Urine Negative (Negative); THC Screen Urine Negative (Negative)
[2019-12-04 18:51] LABS: Glucose Point of Care 170 mg/dL (70-110)
[2019-12-04 18:51] LABS: Glucose Point of Care 140 mg/dL (70-110)
--- NOTE | 2019-12-04 18:51 | US_ITS ---
WS: [id number] ABDOMINAL ULTRASOUND LIMITED REASON FOR VISIT: diarrhea, gall bladder disease, ?CBD dilatation. TECHNIQUE: Grayscale and Doppler ultrasound examination of the abdomen. FINDINGS: Pancreas: Appears normal. Abdominal aorta and IVC: Appears normal. Liver: Liver measures 10.9 cm in length. Normal echotexture. Normal portal circulation. Gallbladder: Gallbladder wall thickness measures 1.6 mm. Numerous stones.. Common bile duct measured 0.33 cm. Right kidney: Right kidney measures 10.7 cm x 5.6 cm x 4.8 cm. Hydronephrosis or stones. US/US gall bladder [id number] IMPRESSION: Cholelithiasis.
--- NOTE | 2019-12-04 19:00 | PC.NURSE ---
report received from JI Baptiste and care transferred to JI Sheridan
--- NOTE | 2019-12-04 20:17 | MRR_ITS ---
PROCEDURE INFORMATION: Exam: MR Abdomen Without Contrast Exam date and time: 12/04/2019 10:30 PM Age: 74 years old Clinical indication: Abnormal findings; Abnormal radiologic finding of the abdomen; Radiologic exam and body structure: Ultrasound; Additional info: Cbd dilatation with gall stones TECHNIQUE: Imaging protocol: MR of the abdomen without contrast. COMPARISON: US gall bladder [id number] 12/04/2019 7:18 PM, CT abdomen 12/04/2019 and 11/11/2017 FINDINGS: Liver: No mass. Gallbladder and bile ducts: Calculi within the gallbladder. No gallbladder wall thickening visualized. No pericholecystic fluid. The intrahepatic and extrahepatic bile ducts are normal. No intraductal filling defect. The common bile duct measures 7 mm. Pancreas: Unremarkable. No ductal dilation. Spleen: Unremarkable. No splenomegaly. Adrenals: 1.3 cm nodule in the left adrenal gland. Right adrenal gland is normal. Kidneys and ureters: The left kidney is absent. The right kidney is normal. Stomach and bowel: Unremarkable. Intraperitoneal space: No fluid collection. Arteries: No abdominal aortic aneurysm. Bones/joints: Unremarkable. Soft tissues: Unremarkable. MR/MR MRCP [id number] IMPRESSION: 1. Normal bile ducts. 2. Cholelithiasis. 3. 1.3 cm left adrenal nodule. This is not significantly changed since 11/11/2017 and is most likely a benign adenoma.
[2019-12-04 20:40] LABS: Glucose Point of Care 115 mg/dL (70-110)
--- NOTE | 2019-12-04 21:34 | PC.NURSE ---
patient to MRI with nurse and EMS
--- NOTE | 2019-12-04 22:56 | PM.HP ---
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 Patient has seen Dr. Guerrero for her recurrent TIAs who recommended had MRI and MRA which did not show any remarkable findings. Patient is stating that today she drove from [place] to [place] in her car she was able to drive without any confusion disorientation vision changes or hypoglycemic symptoms. Lately she has been eating very small because she feels full to her stomach, her last meal was yesterday which was salad around lunchtime and she has had no meal after that. At the restaurant she did not eat anything, in fact experienced 2 episodes of diarrhea clear liquidy stool, her drove her home and she experienced 2 more episodes of loose stools at home while she was sitting in her couch he started experiencing weakness and slurring of speech. Next thing she remembers is she was in an ambulance and she was given D50 for hypoglycemia, her blood sugar was in 30s. After getting D50 her symptoms resolved by the time she arrived at the ER, head CT did not show any remarkable findings, her physical exam was normal her strokelike symptoms resolved after replenishment of blood sugar. Patient denies any history of diabetes, use of insulin or use of chronic steroids for history of [place] disease., Insulinoma. Patient is still taking dual antiplatelet therapy high-dose statin, high-dose aspirin along Plavix Her next appointment with Dr. Guerrero is on 01 January She was able to tell me all the details during the interview MRCP was obtained because of high lipase and previous history of celiac axis syndrome and cholelithiasis with biliary duct dilation 8 mm, no biliary duct dilation was noted, normal AST and ALT Hospital service was requested to observe her overnight because of hypoglycemia. Review of Systems Const: Denies: fever or chills Eyes: Denies: change in vision or photophobia ENMT: Denies: throat pain or uvular edema Card: Denies: chest pain or palpitations Resp: Denies: shortness of breath or non-productive cough GI: Reports: feeling full early, bloating and change in stool character; Denies: abdominal pain or nausea : Denies: flank pain Musc: Denies: neck pain Skin/Breast: Denies: new lesion Neuro: Denies: headache, numbness in extremities, weakness in extremities, changes in sensation, lack of coordination, difficulty walking, frequent falls, dizziness, vertigo, confusion, behavioral changes, slurred speech, difficulty communicating thoughts or seizure-like activity Psych: Denies: anxiety, depression, sleeping less or sleeping more Endo: Denies: excessive urination, excessive thirst, excessive sweating or heat intolerance Tyrel/Lymph: Denies: easy bruising All/Imm: Denies: hives Medications/Allergies Allergies Allergy/AdvReac Type Severity Reaction Status Date / Time No Known Allergies Allergy Verified 12/04/19 15:14 PFSH Acute PFSH: Medical History (Updated 12/04/19 @ 23:01 by Enma Soto MD) Anxiety CAD (coronary artery disease) Cardiac arrest Celiac axis syndrome Chronic pancreatitis CVA (cerebral vascular accident) GI bleed Hiatal hernia History of blood transfusion History of vaginal delivery Hypertension Hyponatremia Mesenteric artery stenosis Mesenteric ischemia Migraine Peripheral vascular disease Pneumonia Postmenopausal Single kidney Sleep apnea TIA (transient ischemic attack) Symptoms are completely resolved TIA (transient ischemic attack) Upper GI bleed Surgical History (Updated 12/04/19 @ 23:48 by Enma Soto MD) H/O aorto-femoral bypass H/O left nephrectomy History of tubal ligation Social History Smoking and tobacco status: former smoker Quit status (tobacco): has quit using tobacco Alcohol intake: current Alcohol intake frequency: 0-2 Drinks per Day Alcohol type: beer Vitals/I&O/Wt Last Vital Signs Pulse 54 L 12/04/19 21:21 Resp 16 12/04/19 21:21 BP 153/61 12/04/19 21:21 Pulse Ox 98 12/04/19 21:21 Weight last 48 hrs Weight 52.617 kg Physical Exam Narrative: EXAM NARRATIVE: Very pleasant middle-age female No focal deficit, alert oriented x3, GCS 15, PERRLA, EOMI, Motor strength 4/5 all extremities S1, S2, no signs of heart failure or JVD Abdomen soft nontender nondistended bowel sound present Skin does not show any signs ischemia gangrene or ulcer On lung auscultation bilateral equal breath sounds without adventitious sounds Appropriate mood and affect No peripheral edema No skin pigmentation Data : 12/04/19 15:05 12/04/19 15:05 A&P Assessment and plan (1) Hypoglycemia: Status: Acute Code(s): E16.2 - Hypoglycemia, unspecified Additional A&P Information Stroke mimicking symptoms secondary to hypoglycemia Currently patient is asymptomatic with normal neurological exam Symptoms improved after getting D50 CT head unremarkable MRI MRA ordered by neurologist shows benign changes We will check cortisol level at 8 AM Patient does not use chronic steroids, no history of insulinoma or [place] disease History of chronic pancreatitis, will check C-peptide level and insulin level to rule out insulinoma Patient has celiac axis syndrome status post stenting and grafting of celiac plexus Currently she is not eating well, she has hyponatremia, hypokalemia Most likely her symptoms are secondary to not eating appropriately Chronic pancreatitis with sensation of early fullness She might benefit from pancreatic enzymes to be taken with meals as she is experiencing diarrhea nowadays VITALIY secondary to dehydration: Anticipating provement with better p.o. intake Cholelithiasis without choledocholithiasis Delatorre sign is negative No signs of sepsis Mild right hydronephrosis No active complaints of UTI or CVA tenderness Left adrenal nodule No significant change in dimensions 1.3 cm Patient is full code DVT prophylaxis: Lovenox Attestations Medical Necessity Statement*: Anticipating discharge in less than 48 hours after work-up of hyperglycemia Time Spent in Patient Care: 60 Coding Level of Care Code Acute Armored Car Messenger for Chg Fwd Diagnoses Hypoglycemia E16.2
[2019-12-05] VITALS (20 sets, daily range): BP systolic 114–173; BP diastolic 62–72; PULSE 57–74; RESP 16–20; TEMP 36.5–37.1; O2SAT 94–97
[2019-12-05 01:31] LABS: Glucose Point of Care 89 mg/dL (70-110)
[2019-12-05 06:00] LABS: Basophils % 0.7 %; Eosinophils # 0.1 10^3/uL (0.0-0.8); Eosinophils % 2.1 %; Hematocrit 38.4 % (37.0-47.0); Hemoglobin 12.5 g/dL (11.5-15.3); Lymphocytes # 1.3 10^3/uL (0.8-4.8); Lymphocytes % 21.5 %; Mean Corpuscular HGB Conc 32.6 g/dL (30.0-36.0); Mean Corpuscular Hemoglobin 29.5 pg (28.0-34.0); Mean Corpuscular Volume 90.6 fL (81-99); Monocytes # 0.9 10^3/uL (0.2-0.9); Monocytes % 14.3 %; Neutrophils # 3.7 10^3/uL (1.8-7.7); Neutrophils % 61.2 %; Nucleated Red Blood Cells % 0 %; Platelet Count 225 10^3/cmm (130-400); Red Blood Count 4.24 10^6/uL (4.1-5.3); Red Cell Distribution Width 12.6 % (12.1-15.1); White Blood Count 6.1 10^3/uL (4.0-10.0)
[2019-12-05 06:24] LABS: Anion Gap 14.1 (5-19); Blood Urea Nitrogen 14 mg/dL (8-23); Carbon Dioxide 25 mmol/L (22-29); Chloride 101 mmol/L (98-107); Glucose 70 mg/dL (65-115); Osmolality Calculated 277 mOsm/kg (285-295); Potassium 4.1 mmol/L (3.5-5.1); Sodium 136 mmol/L (136-145)
[2019-12-05 06:40] LABS: Glucose Point of Care 93 mg/dL (70-110)
[2019-12-05] MEDS: atorvastatin 40 mg Tablet 80 MG PO (08:27)
[2019-12-05] MEDS: gabapentin 300 mg Capsule PO (08:27)
[2019-12-05] MEDS: labetalol 200 mg Tablet PO (08:27)
[2019-12-05] MEDS: aspirin 81 mg EC Tablet 162 MG PO (08:27)
[2019-12-05] MEDS: clopidogrel 75 mg Tablet PO (08:28)
[2019-12-05] MEDS: amlodipine 10 mg Tablet PO (08:28)
[2019-12-05 10:27] LABS: Cortisol Random 18.08 mcg/dL (2.47-19.5)
[2019-12-05 11:32] LABS: Glucose Point of Care 107 mg/dL (70-110)
--- NOTE | 2019-12-05 15:18 | P.DS_ITS ---
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 She presented to the ER yesterday because of weakness, diaphoresis, lethargy and was found to have low blood glucose in 30s. Patient states she usually is not able to eat much as even eating small portions would make her feel full. She has been having 4 episodes of diarrhea yesterday and her appetite was at baseline which is poor so she went hypoglycemic. Patient denied of having any fevers, dysuria, nausea, vomiting, headache, flulike symptoms. Since admission patient did not have any further episodes of diarrhea. Patient had extensive work-up while in the hospital including CT abdomen pelvis which showed small nondilated loops of small bowel with possible nonspecific enteritis, cholelithiasis with common bile duct measuring 8 mm. Patient also underwent MRCP which showed normal bile ducts and cholelithiasis along with a stable 1.3 cm left adrenal nodule since November 2017. During hospitalization patient had repeated blood glucose levels checked which were all within normal limits. Patient had a C-peptide sent and the results are not back. As her blood glucose levels remain normal, investigations are within normal limits, patient was tolerating diet fairly well, no further diarrhea she is been discharged in hemodynamically stable condition as per her request. Patient has been advised to do high carbohydrate frequent small meals along with checking her blood glucose levels at least 4 times a week making sure her blood sugar levels are more than 100. Patient is already so been told that C-peptide, HbA1c results are awaited. As patient did not have any further diarrhea she is not being treated for enteritis and has been advised to keep her hydration levels well. Physical Exam Narrative: EXAM NARRATIVE: General: No acute distress, AO x3, cachectic HEENT: PERRLA, pupils bilaterally equal and reactive Chest: Normal vesicular breath sounds, no added sounds, equal good air entry bilaterally CVS: S1-S2 regular, no murmurs, no tachycardia, no gallops, no rubs Abdomen: Soft, nontender, no organomegaly, bowel sounds present Neuro: No focal deficits, no facial deformity, AO x3, power 5/5 in all limbs Discharge Data Data Completed and Pending: Completed Studies During Hospitalization Category Date Time Status CT abdomen pelvis w con* [id number] Stat Cat Scan 12/04/19 16:[address] head wo con* [id number] Urgent Cat Scan 12/04/19 15:01 Completed XR chest 1V shaneka ble [id number] Stat Exams 12/04/19 16:22 Completed MR MRCP [id number] Urg ent MRI 12/04/19 20:17 Completed US gall bladder 7 [id number] Urgent Ultrasound 12/04/19 18:51 Completed Pending at discharge Category Date Time Status C-Peptide Stat Lab 12/05/19 01:05 Received Labs from last 24 hours 12/05/19 12/05/19 12/05/19 11:07 08:03 06:18 WBC RBC Hgb Hct MCV MCH MCHC RDW Plt Count MPV Neut % (Auto) Lymph % (Auto) [place] % (Auto) Eos % (Auto) Baso % (Auto) Neut # (Auto) Lymph # (Auto) [place] # (Auto) Eos # (Auto) Baso # (Auto) Nucleated RBC % (a uto) Nucleated RBCs # PT INR APTT Sodium Potassium Chloride Carbon Dioxide Anion Gap BUN Creatinine Glucose POC Glucose 107 93 Calculated Osmolal ity Calcium Total Bilirubin AST ALT Alkaline Phosphata se Total Protein Albumin Globulin Lipase Random Cortisol 18.08 Urine Color Urine Appearance Urine pH Ur Specific Gravit y Urine Protein Urine Glucose (UA) Urine Ketones Urine Blood Urine Nitrate Urine Bilirubin Urine Urobilinogen Ur Leukocyte Veronica ase Urine Opiates Scre en Ur Barbiturates Sc reen Ur Phencyclidine S crn Ur Amphetamines Sc reen U Benzodiazepines Scrn Urine Cocaine Scre en U Marijuana (THC) Screen 12/05/19 12/05/19 12/05/19 05:19 05:19 01:27 WBC 6.1 RBC 4.24 Hgb 12.5 Hct 38.4 MCV 90.6 MCH 29.5 MCHC 32.6 RDW 12.6 Plt Count 225 MPV 12.0 H Neut % (Auto) 61.2 Lymph % (Auto) 21.5 [place] % (Auto) 14.3 Eos % (Auto) 2.1 Baso % (Auto) 0.7 Neut # (Auto) 3.7 Lymph # (Auto) 1.3 [place] # (Auto) 0.9 Eos # (Auto) 0.1 Baso # (Auto) 0.0 Nucleated RBC % (a uto) 0 Nucleated RBCs # 0.0 PT INR APTT Sodium 136 Potassium 4.1 Chloride 101 Carbon Dioxide 25 Anion Gap 14.1 BUN 14 Creatinine 0.9 Glucose 70 POC Glucose 89 Calculated Osmolal ity 277 L Calcium 10.0 Total Bilirubin AST ALT Alkaline Phosphata se Total Protein Albumin Globulin Lipase Random Cortisol Urine Color Urine Appearance Urine pH Ur Specific Gravit y Urine Protein Urine Glucose (UA) Urine Ketones Urine Blood Urine Nitrate Urine Bilirubin Urine Urobilinogen Ur Leukocyte Veronica ase Urine Opiates Scre en Ur Barbiturates Sc reen Ur Phencyclidine S crn Ur Amphetamines Sc reen U Benzodiazepines Scrn Urine Cocaine Scre en U Marijuana (THC) Screen 12/04/19 12/04/19 12/04/19 20:27 18:48 17:10 WBC RBC Hgb Hct MCV MCH MCHC RDW Plt Count MPV Neut % (Auto) Lymph % (Auto) [place] % (Auto) Eos % (Auto) Baso % (Auto) Neut # (Auto) Lymph # (Auto) [place] # (Auto) Eos # (Auto) Baso # (Auto) Nucleated RBC % (a uto) Nucleated RBCs # PT INR APTT Sodium Potassium Chloride Carbon Dioxide Anion Gap BUN Creatinine Glucose POC Glucose 115 140 Calculated Osmolal ity Calcium Total Bilirubin AST ALT Alkaline Phosphata se Total Protein Albumin Globulin Lipase Random Cortisol Urine Color Urine Appearance Urine pH Ur Specific Gravit y Urine Protein Urine Glucose (UA) Urine Ketones Urine Blood Urine Nitrate Urine Bilirubin Urine Urobilinogen Ur Leukocyte Veronica ase Urine Opiates Scre en Negative Ur Barbiturates Sc reen Negative Ur Phencyclidine S crn Negative Ur Amphetamines Sc reen Negative U Benzodiazepines Scrn Negative Urine Cocaine Scre en Negative U Marijuana (THC) Screen Negative 12/04/19 12/04/19 12/04/19 17:10 16:11 15:05 WBC RBC Hgb Hct MCV MCH MCHC RDW Plt Count MPV Neut % (Auto) Lymph % (Auto) [place] % (Auto) Eos % (Auto) Baso % (Auto) Neut # (Auto) Lymph # (Auto) [place] # (Auto) Eos # (Auto) Baso # (Auto) Nucleated RBC % (a uto) Nucleated RBCs # PT INR APTT Sodium Potassium Chloride Carbon Dioxide Anion Gap BUN Creatinine Glucose POC Glucose 170 Calculated Osmolal ity Calcium Total Bilirubin AST ALT Alkaline Phosphata se Total Protein Albumin Globulin Lipase 132 H Random Cortisol Urine Color Yellow Urine Appearance Clear Urine pH 5 Ur Specific Gravit y 1.005 Urine Protein Neg Urine Glucose (UA) Trace H Urine Ketones Negative Urine Blood Neg Urine Nitrate Negative Urine Bilirubin Neg Urine Urobilinogen Norm Ur Leukocyte Veronica ase Negative Urine Opiates Scre en Ur Barbiturates Sc reen Ur Phencyclidine S crn Ur Amphetamines Sc reen U Benzodiazepines Scrn Urine Cocaine Scre en U Marijuana (THC) Screen 12/04/19 12/04/19 12/04/19 15:05 15:05 15:05 WBC 9.0 RBC 4.06 L Hgb 12.1 Hct 36.3 L MCV 89.4 MCH 29.8 MCHC 33.3 RDW 12.5 Plt Count 217 MPV 12.3 H Neut % (Auto) 64.7 Lymph % (Auto) 19.5 [place] % (Auto) 13.7 Eos % (Auto) 1.2 Baso % (Auto) 0.6 Neut # (Auto) 5.8 Lymph # (Auto) 1.8 [place] # (Auto) 1.2 H Eos # (Auto) 0.1 Baso # (Auto) 0.1 Nucleated RBC % (a uto) 0 Nucleated RBCs # 0.0 PT 13.70 H INR 1.02 APTT 29.4 Sodium 130 L Potassium 3.6 Chloride 96 L Carbon Dioxide 25 Anion Gap 12.6 BUN 17 Creatinine 1.0 H Glucose 36 L* POC Glucose Calculated Osmolal ity Calcium 9.6 Total Bilirubin 0.7 AST 22 ALT 12 Alkaline Phosphata se 95 Total Protein 6.7 Albumin 4.1 Globulin 2.6 Lipase Random Cortisol Urine Color Urine Appearance Urine pH Ur Specific Gravit y Urine Protein Urine Glucose (UA) Urine Ketones Urine Blood Urine Nitrate Urine Bilirubin Urine Urobilinogen Ur Leukocyte Veronica ase Urine Opiates Scre en Ur Barbiturates Sc reen Ur Phencyclidine S crn Ur Amphetamines Sc reen U Benzodiazepines Scrn Urine Cocaine Scre en U Marijuana (THC) Screen Vitals: Last Vital Signs Temp 98.4 F 12/05/19 11:37 Pulse 69 12/05/19 11:37 Resp 16 12/05/19 11:37 BP 114/68 12/05/19 11:37 Pulse Ox 94 12/05/19 11:37 Discharge Plan Discharge Patient Disposition: Home, Self-Care Condition: Stable Prescriptions: Continued labetalol 200 mg Tablet 200 mg PO BID RF: 0 clopidogrel 75 mg Tablet 75 mg PO DAILY RF: 0 alprazolam 0.25 mg Tablet 0.25 mg PO QID PRN (Reason: Anxiety) RF: 0 atorvastatin 40 mg Tablet 80 mg PO DAILY Qty: 60 RF: 0 aspirin 162.5 mg capsule,extended release 24hr 162.5 mg PO DAILY Qty: 30 RF: 0 gabapentin 300 mg capsule 300 mg PO BID RF: 0 amlodipine 2.5 mg tablet 10 mg PO DAILY RF: 0 Discharge Orders: Discharge Order (Routine); Ordered 12/05/19 Ordered By: Niels Shaffer Referrals: Elian Tavera DO [Primary Care Provider] - 12/12/19 2:00 pm Discharge Diet: Regular Discharge Activity: Resume usual activity Activity Restrictions/Additional Instructions: Consume a high carb diet. Please take frequent small portions of meals. Check your blood sugars at least 4 times a week. You can check your blood sugars fasting numbers making sure they are more than 100. Discharge Attestations Time Spent in Discharge Care*: greater than 30 min Specific Discharge Activities: Specific discharge activities: educating patient, educating and/or supporting family/caregiver and evaluating patient/reviewing data Status at Discharge: Cognitive status at discharge: cognitively intact , Behavioral status at discharge: cooperative , Functional status at discharge: independent ambulation Overall status at discharge: patient is back to baseline Quality Metrics Clinical Quality Measures During this hospital stay, did patient experience: None Coding Level of Care Code Acute Band Head Saw Operator for Yamil Galaviz Diagnoses Hypoglycemia E16.2
[2019-12-05 15:53] LABS: Iron 109 ug/dL (37-145); Percent Saturation 35.7 % (20-50); Total Iron Binding Capacity 305 mcg/dl; Unsaturated Iron Binding 196 ug/dL (112-347)
[2019-12-06 14:32] LABS: C-Peptide 2.65 ng/mL (0.80-3.85)
== END 2019-12-05 15:52 | disposition home or self-care (01) ==
LOC: ER 12-05 00:02 → MEDSURG 12-05 00:20
PROVIDERS: Admitting Provider Internal Medicine; Emergency Provider Family Medicine; Family Provider Internal Medicine; PCP Internal Medicine; Visit Provider Student in an Organized Health Care Education/Training Program
DX: E16.2 Hypoglycemia, unspecified (principal); I77.4 Celiac artery compression syndrome; Z95.5 Presence of coronary angioplasty implant and graft; I25.10 Atherosclerotic heart disease of native coronary artery without angina pectoris; Z86.73 Personal history of transient ischemic attack (TIA), and cerebral infarction without residual deficits; I10 Essential (primary) hypertension; G47.30 Sleep apnea, unspecified; Z87.891 Personal history of nicotine dependence; Z79.82 Long term (current) use of aspirin
CPT/HCPCS: 12345; 36415; 36416; 70450; 71045; 74177; 74181; 76705; 80048; 80053; 80307; 81003; 82533; 82962; 83540; 83550; 83690; 84681; 85025; 85610; 85730; 93005; 99283; 99285; G0378; Q9967

== ENCOUNTER → 2020-01-02 15:21 | Outpatient (BNVA) | payer MEDICARE, OTHER, SELFPAY | PROVIDERS: Family Provider Internal Medicine; PCP Internal Medicine; Visit Provider Specialist | DX: R41.82 Altered mental status, unspecified (principal); Z87.891 Personal history of nicotine dependence; Z86.73 Personal history of transient ischemic attack (TIA), and cerebral infarction without residual deficits | CPT/HCPCS: 99214 ==

== ENCOUNTER 2021-03-06 09:32 | Outpatient (CLI) | payer MEDICARE, OTHER, SELFPAY ==
--- NOTE | 2021-03-06 10:03 | ECG_ITS ---
Test Date: 2021-03-06 Pat Name: Hortensia Cameron Department: Room: Gender: Female Atg Architect: : [id number] Requested By: Eugenio Rachel Order Number: [id number] Miguel MD: Carson Henderson M.D. Measurements Intervals [place] Rate: 64 P: 50 HI: 183 QRS: 68 QRSD: 80 T: 31 QT: 397 QTc: 412 Interpretive Statements SINUS RHYTHM INTERPRETATION BASED ON A DEFAULT AGE OF 40 YEARS Compared to ECG 12/04/2019 15:29:41 Sinus bradycardia no longer present Electronically Signed On 03-07-2021 19:02:38 CDT by Carson Henderson M.D. [email or web address]
[2021-03-06 10:26] LABS: Basophils # 0.1 10^3/uL (0.0-0.1); Basophils % 1.3 %; Eosinophils # 0.2 10^3/uL (0.0-0.8); Eosinophils % 3.8 %; Hematocrit 42.6 % (37.0-47.0); Hemoglobin 13.3 g/dL (11.5-15.3); Lymphocytes # 1.2 10^3/uL (0.8-4.8); Lymphocytes % 18.9 %; Mean Corpuscular HGB Conc 31.2 g/dL (30.0-36.0); Mean Corpuscular Hemoglobin 29.8 pg (28.0-34.0); Mean Corpuscular Volume 95.5 fL (81-99); Mean Platelet Volume 10.8 fL (7.4-10.4); Monocytes # 0.6 10^3/uL (0.2-0.9); Monocytes % 10.3 %; Neutrophils % 65.5 %; Nucleated Red Blood Cells % 0 %; Platelet Count 228 10^3/cmm (130-400); Red Blood Count 4.46 10^6/uL (4.1-5.3); Red Cell Distribution Width 14.8 % (12.1-15.1); White Blood Count 6.1 10^3/uL (4.0-10.0)
[2021-03-06 10:50] LABS: Blood Urea Nitrogen 11 mg/dL (8-23); Calcium 8.9 mg/dL (8.5-10.5); Carbon Dioxide 25 mmol/L (22-29); Chloride 103 mmol/L (98-107); Glucose 94 mg/dL (65-115); Osmolality Calculated 281 mOsm/kg (285-295); Sodium 136 mmol/L (136-145)
== END 2021-03-06 09:33 | disposition home or self-care (01) ==
LOC: LAB 09:44
PROVIDERS: PCP Internal Medicine; Visit Provider Specialist
DX: D48.5 Neoplasm of uncertain behavior of skin (principal); Z01.810 Encounter for preprocedural cardiovascular examination
CPT/HCPCS: 36415; 80048; 85025; 93005

== ENCOUNTER 2021-03-20 12:20 | Outpatient (CLI) | payer MEDICARE, OTHER, SELFPAY | END 2021-03-20 12:21 | disposition home or self-care (01) | PROVIDERS: PCP Internal Medicine; Visit Provider Specialist | DX: C44.311 Basal cell carcinoma of skin of nose (principal) | CPT/HCPCS: 88304; 88331 ==

== ENCOUNTER 2022-04-21 08:52 | Outpatient (CLI) | payer MEDICARE, OTHER, SELFPAY ==
[2022-04-21 09:05] VITALS: BMI 21.7
--- NOTE | 2022-04-21 09:41 | ECG_ITS ---
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 Interpretive Statements NAME OF STUDY: LEXISCAN SESTAMIBI STRESS TEST INDICATION: Reyna, PROCEDURE: At the baseline, the EKG revealed normal sinus rhythm with a frequent supraventricular ectopics. The baseline blood pressure was 177/76 mm Hg with a heart rate of 83 beats/min. Lexiscan was infused over a period of 20 seconds. A total of 0.4 milligrams of Lexiscan was infused. The stress phase was continued for a total of 5 minutes. Heart rate at the end of the stress phase was 102 with a blood pressure 128/65. The EKG at the peak infusion revealed no significant changes. Sestamibi was injected 20 seconds after the Lexiscan infusion. Blood pressure at the end of the recovery phase was 147/63 with a heart rate of 102 per minute. CONCLUSION: 1. No significant EKG changes with the LexiScan infusion 2. No LexiScan induced chest pain or cardiac arrhythmia 3. Normal blood pressure and heart rate response 4. Sestamibi/sestamibi perfusion scan pending; see separate report. Electronically Signed On 04-21-2022 14:05:59 CDT by Hector Landry M.D. [email or web address]
--- NOTE | 2022-04-21 09:42 | NMCV_ITS ---
NM rodriguez perf SPECT r/s* [id number] Hortensia Cameron Age: 76 Gender: F : 1945 Exam Date: 04/21/2022 10:21 Ordering Phys: Elian Tavera DO Technologist: XAVIER Lunsford Exam Location: [facility] Indications: CHEST PAIN STRESS TEST Please see separate stress test report in [facility] for full findings IMAGE PROTOCOL Rest/Stress 1 Radiopharmaceutical Dose (mCi) Administration Site Administered by Rest: Tc-99m 11.0 IV XAVIER Dumont Sestamibi Stress:Tc-99m 32.4 IV XAVIER Dumont Sestamibi Rest: 21-Apr-2022 60 Discovery 630 Stress: 21-Apr-2022 30 Discovery 630 0.4mg. Images obtained in supine and prone position. SPECT RESULTS Technical Quality: Excellent Raw Data Analysis: Normal Image Corrections: No attenuation or motion correction applied Summed Stress Score: 1 Summed Rest Score: 0 Summed Difference Score: 1 PERFUSION FINDINGS A small area of slightly decreased tracer uptake was noted in the basal inferolateral region. No significant reversibility was noted in this region FUNCTIONAL RESULTS (calculated via Gated SPECT) Stress Image LV EF (%): 79 Stress EDV (mL):42 TID: 1 Stress ESV (mL):9 FUNCTIONAL FINDINGS: Segmental wall motion analysis revealing no gross wall motion abnormalities IMPRESSIONS 1. Myocardial perfusion imaging revealing a small area of persistent decreased tracer uptake in the basal inferolateral region suggestive of myocardial scarring versus attenuation artifact. 2. Segmental wall motion analysis revealing no gross wall motion abnormalities 3. Normal LV ejection fraction 71%. 4. Normal LV volume Low probability for coronary ischemia, based on the above findings Dr Hector Landry MD FACC (Electronically Signed) Final Date: 21 April 2022 18:14 S
--- NOTE | 2022-04-21 09:52 | PC.NURSE ---
Patient states she feels uncertain of her abilities to walk on a treadmill. Dr. Oliveros's office contacted (Dr. Tavera out of office), per Jimena, ok to switch to Lexiscan if necessary.
--- NOTE | 2022-04-21 10:15 | USCV_ITS ---
Hortensia Cameron Age: 76 Gender: F : 1945 Exam Date: 04/21/2022 12:44 Ordering Phys: Elian Tavera DO Technologist: Huy Lopez Exam Location: [facility] [place] Indication: Dyspnea BP: 150 / 73 HR: 115 Rhythm: Sinus Technical Quality: Adequate MEASUREMENTS (Male / Female) Normal Values 2D ECHO LV Diastolic Diameter PLAX 3.1 cm 4.2 - 5.9 / 3.9 - 5.3 cm LV Systolic Diameter PLAX 1.9 cm IVS Diastolic Thickness 0.7 cm 0.6 - 1.0 / 0.6 - 0.9 cm IVS Systolic Thickness 0.7 cm LVPW Diastolic Thickness 1.2 cm 0.6 - 1.0 / 0.6 - 0.9 cm LVPW Systolic Thickness 0.9 cm LVOT Diameter 2.0 cm LV Ejection Fraction 2D Teich 68.6 % LV Ejection Fraction MOD 2C 71.2 % LV Ejection Fraction 2C AL 72.4 % LA Diameter 3.3 cm LA Width 2.8 cm LA Height 3.6 cm RA Width 2.3 cm RA Height 3.6 cm Aorta at Sinotubular Diameter 1.8 cm IVC Diameter 1.2 cm M-MODE Aortic Annulus Diameter 2.3 cm LA Ao Ratio MM 1.4 MV E Point Septal Separation 0.5 cm DOPPLER AV Peak Velocity 154.5 cm/s LVOT Peak Velocity 120.0 cm/s AV Area Cont Eq vti 2.7 cm squared AV Area Cont Eq pk 2.5 cm squared MV Peak Velocity 108.0 cm/s MV Area PHT 3.9 cm squared Mitral E to A Ratio 0.7 MV E' Velocity 34.0 cm/s Mitral E to MV E' Ratio 7.9 Mitral E to LV E' Lateral Ratio 7.7 Mitral E to LV E' Septal Ratio 8.2 TR Peak Velocity 301.3 cm/s TR Peak Gradient 36.3 mmHg TR Mean Velocity 255.7 cm/s TR Mean Gradient 26.5 mmHg TR Velocity Time Integral 83.6 cm Right Atrial Pressure 3.0 mmHg Pulmonary Artery Systolic Pressu 39.3 mmHg RV Acceleration Time 0.1 s RV Ejection Time 0.3 s RV AcT/ET 0.4 FINDINGS Left Ventricle Normal left ventricular size and systolic function, EF 73 %. No regional wall motion abnormalities.Grade I/IV diastolic dysfunction (abnormal relaxation filling pattern), normal to mildly elevated filling pressures. Right Ventricle Normal right ventricular size and systolic function. Right Atrium Normal right atrial size. Left Atrium Mildly increased left atrial size. Mitral Valve Thickened mitral valve. Mild mitral annular calcification. Aortic Valve No gross abnormalities noted Tricuspid Valve No gross abnormalities noted.trace tricuspid valve regurgitation. Estimated pulmonary artery peak systolic pressure 39 mmHg Pulmonic Valve Pulmonic valve not well visualized. Pericardium No pericardial effusion. Aorta Normal aortic annulus size. IVC Normal inferior vena cava. CONCLUSIONS Normal left ventricular size and systolic function, EF 73 %. No regional wall motion abnormalities.Grade I/IV diastolic dysfunction (abnormal relaxation filling pattern), normal to mildly elevated filling pressures. Mildly increased left atrial size. Thickened mitral valve. Mild mitral annular calcification. Trace tricuspid valve regurgitation. Estimated pulmonary artery peak systolic pressure 39 mmHg. There is no pericardial effusion. There are no intracardiac masses. Compared to the study from 11/12/2017, there may not be significant change Dr Hector Landry MD FACC (Electronically Signed) Final Date: 21 April 2022 19:58 S
--- NOTE | 2022-04-21 11:19 | PC.NURSE ---
Attempted exercise stress test, patient unable to preform test. Order changed to lexiscan, ok per verbal order. See previous note.
[2022-04-21] MEDS: regadenoson 0.4 Mg/5 ml Syringe IVP (11:27)
[2022-04-21 11:33] VITALS: BP 124/66; PULSE 102
== END 2022-04-21 08:53 | disposition home or self-care (01) ==
LOC: CDL 08:54
PROVIDERS: PCP Internal Medicine; Visit Provider Internal Medicine
DX: R07.9 Chest pain, unspecified (principal); I51.89 Other ill-defined heart diseases
CPT/HCPCS: 78452; 93017; 93306; A9500; J2785

== ENCOUNTER → 2023-12-18 07:52 | Outpatient (BNVA) | payer MEDICARE, OTHER, SELFPAY | PROVIDERS: PCP Internal Medicine; Visit Provider Nurse Practitioner Family | DX: L57.0 Actinic keratosis (principal); L57.8 Other skin changes due to chronic exposure to nonionizing radiation; L81.4 Other melanin hyperpigmentation; Z85.828 Personal history of other malignant neoplasm of skin | CPT/HCPCS: 17000; 99203 ==

== ENCOUNTER → 2024-12-19 15:31 | Outpatient (BNVA) | payer MEDICARE, OTHER, SELFPAY | PROVIDERS: PCP Internal Medicine; Visit Provider Nurse Practitioner Family | DX: L72.11 Pilar cyst (principal); L57.8 Other skin changes due to chronic exposure to nonionizing radiation; L81.4 Other melanin hyperpigmentation; Z08 Encounter for follow-up examination after completed treatment for malignant neoplasm; Z85.828 Personal history of other malignant neoplasm of skin; D48.5 Neoplasm of uncertain behavior of skin; L57.0 Actinic keratosis | CPT/HCPCS: 11102; 17000; 69100; 99213 ==

== ENCOUNTER → 2025-01-05 08:09 | Outpatient (BNVA) | payer MEDICARE, OTHER, SELFPAY | PROVIDERS: PCP Internal Medicine; Visit Provider Dermatology | DX: C44.311 Basal cell carcinoma of skin of nose (principal); C44.219 Basal cell carcinoma of skin of left ear and external auricular canal | CPT/HCPCS: 11642; 13152; 17311 ==

== ENCOUNTER → 2025-01-13 11:06 | Outpatient (BNVA) | payer MEDICARE, OTHER, SELFPAY | PROVIDERS: PCP Internal Medicine; Visit Provider Dermatology | DX: C44.311 Basal cell carcinoma of skin of nose (principal) | CPT/HCPCS: 99213 ==

== ENCOUNTER 2025-02-22 10:28 | Outpatient (CLI) | payer MEDICARE, OTHER, SELFPAY ==
--- NOTE | 2025-02-22 10:36 | MR_ITS ---
WS: [id number] MRI LEFT SHOULDER HISTORY: PAIN IN LEFT SHOULDER/STIFFNESS COMPARISON: None available. TECHNIQUE: Multiplanar sequences of the shoulder joint are submitted. Mild AC joint arthritis. There is slight downsloping of the acromion and subacromial impingement. Tiny amount of fluid in the subacromial bursa. No os acromion. Normal position of the biceps tendon in the bicipital groove. Mildly high riding humeral head with advanced glenohumeral joint space narrowing. Small subchondral cysts in the glenoid. There are a few small subchondral cystic changes also in the posterior lateral humeral head. Very mild atrophy of the supraspinatus muscle. No rotator cuff tendon tears. Mild tendin opathy of the distal supraspinatus tendon. There is mild surface fraying along the inferior articular surface of the tendon. Coracohumeral ligament is intact. Increased signal in the posterior labrum suspicious for a focal tear. Remaining labrum is intact No fractures or marrow edema. MR/MR shoulder LT wo con* [id number] IMPRESSION: 1. Mild AC joint arthritis. 2. No rotator cuff tendon tear. Mild atrophy of the supraspinatus muscle. 3. Advanced glenohumeral joint narrowing and arthritis. Subchondral cysts in t he glenoid. Loss of normal cartilage of the glenoid and humeral head. 4. Suspicious for focal tear in the posterior labrum.
== END 2025-02-22 10:29 | disposition home or self-care (01) ==
PROVIDERS: PCP Internal Medicine; Visit Provider Nurse Practitioner Family
DX: M19.012 Primary osteoarthritis, left shoulder (principal); M62.512 Muscle wasting and atrophy, not elsewhere classified, left shoulder; M85.612 Other cyst of bone, left shoulder; R93.7 Abnormal findings on diagnostic imaging of other parts of musculoskeletal system; M67.814 Other specified disorders of tendon, left shoulder
CPT/HCPCS: 73221

== ENCOUNTER → 2025-03-07 07:38 | Outpatient (BNVA) | payer MEDICARE, OTHER, SELFPAY | PROVIDERS: PCP Internal Medicine; Visit Provider Orthopaedic Surgery | DX: M75.02 Adhesive capsulitis of left shoulder (principal) | CPT/HCPCS: 99204 ==

== ENCOUNTER 2025-03-09 12:52 | Outpatient (RCR) | payer MEDICARE, OTHER, SELFPAY | END 2025-03-14 15:08 | disposition home or self-care (01) | LOC: SPT 12:52 | PROVIDERS: Visit Provider Orthopaedic Surgery | DX: M25.512 Pain in left shoulder (principal) | CPT/HCPCS: 97110; 97161 ==

== ENCOUNTER → 2025-04-11 08:34 | Outpatient (BNVA) | payer MEDICARE, OTHER, SELFPAY | PROVIDERS: Visit Provider Orthopaedic Surgery | DX: M25.512 Pain in left shoulder (principal); G89.29 Other chronic pain | CPT/HCPCS: 99213 ==

== ENCOUNTER → 2025-04-17 11:18 | Outpatient (BNVA) | payer MEDICARE, OTHER, SELFPAY | PROVIDERS: Visit Provider Dermatology | DX: L82.1 Other seborrheic keratosis (principal); L57.8 Other skin changes due to chronic exposure to nonionizing radiation; Z08 Encounter for follow-up examination after completed treatment for malignant neoplasm; Z85.828 Personal history of other malignant neoplasm of skin; L57.0 Actinic keratosis | CPT/HCPCS: 17000; 99213 ==

== ENCOUNTER 2025-04-28 15:42 | Outpatient (CLI) | payer MEDICARE, OTHER, SELFPAY ==
--- NOTE | 2025-04-28 15:49 | USCV_ITS ---
CameronHortensia yañez Age: 79 Gender: F : 1945 Exam Date: 04/28/2025 16:01 Ordering Phys: Comfort Patterson Technologist: POLY [place]am Location[place] [facility] [place]ication: hx fo cva Risk Factors: Previous Vascular Surgery: Right Brachial BP: / Left Brachial BP: / Right Left Velocity (cm/s) Spectral Plaque Velocity (cm/s) Spectral Plaque Syst/Diast Broadening Syst/Diast Broadening 190.40/15.20 Prox CCA 102.40/ 14.50 115.70/16.10 Mid CCA 90.80 / 21.60 94.00/ 16.10 Distal CCA 106.60/ 27.00 63.20/ 11.30 Prox ICA 99.90 / 23.50 69.40/ 10.70 Mid ICA 67.40 / 15.90 57.60/ 10.10 Distal ICA 61.70 / 18.90 70.70 ECA 81.40 0.70 ICA/CCA 0.90 Antegrade Vertebral Antegrade 43.10/ 12.70 cm/s 48.40/ 14.80 cm/s Tri Subclavian Bi 136.2 175.9 0 0 FINDINGS Comparison:. 10/05/19. No significant elevation of systolic or diastolic velocities. Mild waveform turbulence. Diffuse bilateral scattered calcified plaque and intimal thickening throughout the common carotid arteries and extending through the bifurcation. Progression of plaque since the prior exam. Antegrade vertebral arteries. CONCLUSIONS Bilateral ICA stenosis less than 50%. Progression of diffuse carotid atherosclerosis since the prior exam. Dr. Renata Wynn DO (Electronically Signed) Final Date: 01 May 2025 07:47 S
== END 2025-04-28 15:43 | disposition home or self-care (01) ==
LOC: RAD 15:44
PROVIDERS: PCP Nurse Practitioner Family; Visit Provider Nurse Practitioner Family
DX: I65.23 Occlusion and stenosis of bilateral carotid arteries (principal); Z86.73 Personal history of transient ischemic attack (TIA), and cerebral infarction without residual deficits
CPT/HCPCS: 93880

== ENCOUNTER → 2025-05-04 09:00 | Outpatient (BNVA) | payer MEDICARE, OTHER, SELFPAY | PROVIDERS: PCP Nurse Practitioner Family; Visit Provider Orthopaedic Surgery | DX: M25.512 Pain in left shoulder (principal); G89.29 Other chronic pain | CPT/HCPCS: 99213 ==